=== PATIENT | female | born 1955 ===

== ENCOUNTER 2018-06-20 11:48 | Emergency (ER) | payer BC ==
[2018-06-20] MEDS: IBUPROFEN 600 MG TAB PO (12:07)
== END 2018-06-20 14:47 | disposition home or self-care (01) ==
LOC: FTE 11:48
DX: S89.92XA Unspecified injury of left lower leg, initial encounter (principal); S89.91XA Unspecified injury of right lower leg, initial encounter; X58.XXXA Exposure to other specified factors, initial encounter; Y92.9 Unspecified place or not applicable
CPT/HCPCS: 73562; 73562-50; 93971; 99284-25